=== PATIENT | male | born 1985 | race Caucasian/White ===

== ENCOUNTER 2022-09-17 06:31 | Day surgery (SDC) | payer OTHER, SELFPAY ==
[2022-09-15 13:18] VITALS: BMI 23.7
[2022-09-17 06:57] VITALS: BP 161/82; PULSE 61; RESP 17; TEMP 36.1; O2SAT 97
[2022-09-17] MEDS: sodium chloride 0.9% 1,000 ML 30 ML IV (07:05)
--- NOTE | 2022-09-17 07:13 | ANES.PREANE2 ---
Pre-Anesthetic Assessment Height/Weight: Height 1.8 m Weight 77.111 kg Temp Pulse Resp BP Pulse Ox O2 Del Method 97.0 F L 61 17 161/82 97 09/17/22 06:57 09/17/22 06:57 09/17/22 06:57 09/17/22 06:57 09/17/22 06:57 09/17/22 06:57 Operation Date: 09/17/22 07:45 Proposed Procedures p [id number] egd, [id number] colon R10.9,K52.9(Not Applicable) - Jesus Saab DO s Colonoscopy(Not Applicable) - Jesus Saab DO Familial anesthetic complications: None Was Beta Sosa taken within 24 hours: N/A Was Clonidine taken within 24 hours: N/A Last intake: Intake Last Liquid Date 09/16/22 Last Liquid Time 21:00 Last Solid Date 09/15/22 Last Solid Time 18:00 Social Tobacco and No alcohol Exam alert, oriented x 3, clear to auscultation bilaterally and regular rate & rhythm Airway Mallampati: Class II Dentition: chipped GI IBS Anesthetic Plan ASA status: 2 Anesthesia: MAC Risk of > 500 ml blood loss (7ml/kg in children): No Medications/Allergies Home Medications Medication Instructions Recorded Confirmed Last Taken Type bupropion HCl 150 mg tablet,12 hr 150 mg PO QAM anxiety #30 tabs 07/25/22 09/17/22 09/13/22 Rx sustained-release Allergies Allergy/AdvReac Type Severity Reaction Status Date / Time No Known Allergies Allergy Unverified 09/17/22 06:48 Current Medications Generic Name Dose Route Start Last Admin Trade Name Miltonq PRN Reason Stop Dose Admin Sodium Chloride 1,000 mls @ 30 mls/hr 09/17/22 06:45 09/17/22 07:05 Sodium Chloride 0.9% IV 09/18/22 06:44 30 mls/hr .Q24H BRIAN Administration PFSH Anesthesia Medical History Anxiety Athlete's foot Boxers fracture Chronic diarrhea Started around 2006 after emergency appendectomy with recommendation for colonoscopy at that time. Cigarette smoker motivated to quit Hemorrhoids Irritable bowel syndrome with diarrhea Participant in health and wellness plan Surgical History H/O vasectomy History of appendectomy Emergency appendectomy 2007 Hx of tonsillectomy Family History Father Cancer Mother Degenerative disk disease Fibromyalgia COPD (chronic obstructive pulmonary disease) Social History Smoking and tobacco status: current every day smoker Quit status (tobacco): not considering quitting Second hand smoke exposure: No Smoking risk assessment/counseling performed?: Yes Alcohol intake: current Alcohol intake frequency: holidays/special occasions only Alcohol type: beer Desire information about alcohol rehabilitation?: No Counseling given: No Desire information about substance/drug rehabilitation?: No Counseling given: No Data Anesthesia Cardiac Studies: No Data to Display
--- NOTE | 2022-09-17 08:01 | PM.HP ---
Providers/Chief Complaint Primary Care Provider: Nicolás Zuluaga MD Chief Complaint: R10.9, K52.9 History of Present Illness Papi Infante is a 37 year old male here for EGD and colonoscopy with random biopsies Medications/Allergies Home Medications Medication Instructions Recorded Confirmed Last Taken Type bupropion HCl 150 mg tablet,12 hr 150 mg PO QAM anxiety #30 tabs 07/25/22 09/17/22 09/13/22 Rx sustained-release Allergies Allergy/AdvReac Type Severity Reaction Status Date / Time No Known Allergies Allergy Unverified 09/17/22 06:48 PFSH Acute PFSH: Medical History Anxiety Athlete's foot Boxers fracture Chronic diarrhea Started around 2006 after emergency appendectomy with recommendation for colonoscopy at that time. Cigarette smoker motivated to quit Hemorrhoids Irritable bowel syndrome with diarrhea Participant in health and wellness plan Surgical History H/O vasectomy History of appendectomy Emergency appendectomy 2006 Hx of tonsillectomy Family History Father Cancer Mother Degenerative disk disease Fibromyalgia COPD (chronic obstructive pulmonary disease) Social History Smoking and tobacco status: current every day smoker Quit status (tobacco): not considering quitting Second hand smoke exposure: No Smoking risk assessment/counseling performed?: Yes Alcohol intake: current Alcohol intake frequency: holidays/special occasions only Alcohol type: beer Desire information about alcohol rehabilitation?: No Counseling given: No Desire information about substance/drug rehabilitation?: No Counseling given: No Vitals/I&O/Wt Last Vital Signs Temp 97.0 F L 09/17/22 06:57 Pulse 61 09/17/22 06:57 Resp 17 09/17/22 06:57 BP 161/82 09/17/22 06:57 Pulse Ox 97 09/17/22 06:57 O2 Del Method 09/17/22 06:57 Weight last 48 hrs Weight 170 lb A&P Assessment and plan (1) Abdominal pain: Plan EGD and colonoscopy with random biopsies Attestations Medical Necessity Statement*: Home Coding Level of Care Code Acute Code for Chg Fwd Diagnoses Abdominal pain R10.9
[2022-09-17 08:33] VITALS: BP 110/75; PULSE 51; RESP 18; TEMP 36.1; O2SAT 96
[2022-09-17 08:38] VITALS: BP 128/86; PULSE 48; RESP 18; O2SAT 98
[2022-09-17 08:48] VITALS: PULSE 50; RESP 18; O2SAT 98
--- NOTE | 2022-09-17 13:40 | ANE.PACU2 ---
Inpatient post-anesthesia follow up: Airway intact: Yes Vital signs: Temperature 97.0 F Pulse Rate 50 Respiratory Rate 18 Blood Pressure 128/86 Pulse Oximetry 98 Oxygen Delivery Me thod Room Air Oxygen Flow Rate 3 Fraction of Inspir ed Oxygen Hydration adequate: Yes Nausea and vomiting: No Pain level: 1 Mental status: Baseline
== END 2022-09-17 09:12 | disposition home or self-care (01) ==
PROVIDERS: PCP Family Medicine Adult Medicine; Visit Provider Surgery
PROC: 0DJ08ZZ Inspection of Upper Intestinal Tract, Via Natural or Artificial Opening Endoscopic (ICD-10-PCS; CPT 43235; principal; 2022-09-17 07:45)
PROC: 0DJD8ZZ Inspection of Lower Intestinal Tract, Via Natural or Artificial Opening Endoscopic (ICD-10-PCS; CPT 45378; 2022-09-17 07:45)
DX: R10.9 Unspecified abdominal pain (principal); K52.9 Noninfective gastroenteritis and colitis, unspecified; K64.8 Other hemorrhoids; D12.8 Benign neoplasm of rectum; K29.50 Unspecified chronic gastritis without bleeding; F17.210 Nicotine dependence, cigarettes, uncomplicated
CPT/HCPCS: 43239; 45380; 82274; 83630; 87493; 87506; 88305; 88342; J2704; J7030

== ENCOUNTER → 2024-03-26 11:20 | Outpatient (BNVA) | payer BC, SELFPAY | PROVIDERS: PCP Family Medicine Adult Medicine; Visit Provider Emergency Medicine | DX: M25.532 Pain in left wrist (principal) | CPT/HCPCS: 73110 ==